=== PATIENT | female | born 1985 | race African-American/Black ===

== ENCOUNTER 2017-03-09 17:34 | Emergency (ER) | payer SELFPAY | END 2017-03-09 18:00 | disposition left against medical advice (07) | LOC: ER 17:41 | DX: M79.604 Pain in right leg (principal); Z53.21 Procedure and treatment not carried out due to patient leaving prior to being seen by health care provider ==

== ENCOUNTER 2018-05-08 10:44 | Emergency (ER) | payer MEDICAID, OTHER ==
[~2018-05-08] VITALS: Ht 30.5 cm; Wt 0.5 kg
[2018-05-08] MEDS ORDERED: MULTIPLE VITAMIN 10 ML, MAGNESIUM SULF SDV 50% 8 MEQ in SODIUM CHLORIDE 0.9% 1,000 ML IV SCH (12:00)
== END 2018-05-08 15:20 | disposition left against medical advice (07) ==
LOC: EDBD 10:44 → ER 10:49
DX: F10.229 Alcohol dependence with intoxication, unspecified (principal); G92 Toxic encephalopathy; Z53.29 Procedure and treatment not carried out because of patient's decision for other reasons
CPT/HCPCS: 99283; J3475; J7030

== ENCOUNTER 2021-12-15 15:30 | Emergency (ER) | payer MEDICAID ==
[~2021-12-15] VITALS: Ht 170.2 cm; Wt 86.4 kg
[2021-12-15] MEDS ORDERED: cloNIDine HCL 0.1 MG TAB PO ONE (17:30)
[2021-12-15] MEDS ORDERED: BENZ100C19 PO (19:50)
[2021-12-15] MEDS ORDERED: AML5T PO (19:51)
[2021-12-16 02:10] VITALS: BP 162/111
== END 2021-12-16 02:23 | disposition home or self-care (01) ==
LOC: ER 15:30
DX: J06.9 Acute upper respiratory infection, unspecified (principal); B97.89 Other viral agents as the cause of diseases classified elsewhere; I10 Essential (primary) hypertension; F17.210 Nicotine dependence, cigarettes, uncomplicated
CPT/HCPCS: 71045

== ENCOUNTER 2022-07-17 13:28 | Emergency (ER) | payer MEDICAID ==
[~2022-07-17] VITALS: Ht 170.2 cm; Wt 86.0 kg
[~2022-07-17 13:28] MED LIST: AML5T PO; BENZ100C19 PO
[2022-07-17] MEDS ORDERED: SODIUM CHLORIDE 0.9% 1,000 ML IVB ONE (13:45)
[2022-07-17] MEDS ORDERED: THIAMINE 100mg/ml INJ (200mg/2ml VIAL) IV ONE (13:45)
[2022-07-17 13:59] VITALS: BP 123/81
[2022-07-17 14:09] LABS: Basophils # (auto) 0.1 10 ^3/uL (0-0.2); Basophils % (auto) 0.9 % (0.0-2.0); Eosinophils # (auto) 0 10 ^3/uL (0-0.8); Eosinophils % (auto) 0.5 % (0.0-7.0); Hematocrit 39.8 % (36.0-46.0); Hemoglobin 13.7 g/dL (12.2-16.2); Lymphocytes # (auto) 1.1 10 ^3/uL (0.4-5.4); Lymphocytes % (auto) 12.6 % (10.0-50.0); Mean Corpuscular Hemoglobin 32.5 pg (28.0-32.0); Mean Corpuscular Hgb Conc. 34.4 g/dL (32.0-36.0); Mean Corpuscular Volume 94.3 fL (80.0-100.0); Monocytes # (auto) 0.5 10 ^3/uL (0-1.3); Monocytes % (auto) 5.7 % (0.0-12.0); Neutrophils # (auto) 7.2 10 ^3/uL (1.6-8.6); Neutrophils % (auto) 80.3 % (37.0-80.0); Nucleated Red Blood Cells % 0.2 %; Red Blood Cells 4.22 10^6/uL (4.0-5.20); Red Cell Distribution Width 13.6 % (11.8-14.3)
[2022-07-17 14:36] LABS: Albumin 2.4 g/dL (3.4-5.0); Calcium 8.5 mg/dL (8.5-10.1); Potassium 4.4 mmol/L (3.5-5.1)
[2022-07-17 14:39] LABS: BUN/Creatinine Ratio 15.3 (10.0-20.0); Bilirubin, Total 0.4 mg/dL (0.2-1.0); Total Protein 5.2 g/dL (6.4-8.2)
== END 2022-07-17 14:59 | disposition left against medical advice (07) ==
LOC: ER 13:28
DX: F10.10 Alcohol abuse, uncomplicated (principal); I10 Essential (primary) hypertension; F17.210 Nicotine dependence, cigarettes, uncomplicated; Z59.00 Homelessness unspecified; Z79.899 Other long term (current) drug therapy; Y90.2 Blood alcohol level of 40-59 mg/100 ml
CPT/HCPCS: 36415; 80053; 80320; 85025

== ENCOUNTER 2023-03-10 09:12 | Emergency (ER) | payer MEDICAID ==
[~2023-03-10] VITALS: Ht 170.2 cm; Wt 74.2 kg
[2023-03-10 09:22] VITALS: BP 125/86; PULSE 121; RESP 18; O2SAT 100
== END 2023-03-10 10:30 | disposition home or self-care (01) ==
LOC: ER 09:12
DX: S60.453A Superficial foreign body of left middle finger, initial encounter (principal); I10 Essential (primary) hypertension; F17.210 Nicotine dependence, cigarettes, uncomplicated; Z59.00 Homelessness unspecified; Z79.899 Other long term (current) drug therapy; X58.XXXA Exposure to other specified factors, initial encounter; Y93.89 Activity, other specified; Y92.89 Other specified places as the place of occurrence of the external cause; Y99.8 Other external cause status